=== PATIENT | male | born 1965 | race Caucasian/White ===

== ENCOUNTER 2022-04-08 11:01 | Emergency (ER) | payer OTHER ==
[~2022-04-08] VITALS: Ht 190.5 cm; Wt 106.3 kg
[2022-04-08 11:37] VITALS: BP 113/67
[2022-04-08 11:46] VITALS: BP 123/72
[2022-04-08 11:55] LABS: HEMATOCRIT 37.9 % (39.0-50.0); HEMOGLOBIN 12.1 g/dl (14.0-18.0); MEAN CELL VOLUME 95.5 fL CALC (80.0-100.0); MEAN CORPUSCULAR HGB 30.5 pG CALC (26.0-32.0); MEAN CORPUSCULAR HGB CONC 31.9 g/dL CAL (32.0-36.0); NEUT# 2.91 thou/uL (1.82-7.42); RED BLOOD COUNT 3.97 mill/uL (4.70-6.10); RED CELL DISTRI WIDTH 12.9 % (11.5-15.5)
[2022-04-08 11:59] VITALS: BP 113/71
[2022-04-08 12:30] VITALS: BP 119/70
[2022-04-08 12:30] LABS: ALBUMIN 3.6 g/dL (3.2-5.0); ALKALINE PHOSPHATASE 71 u/l (38-126); ANION GAP 11 (6-22 (CALC)); BILIRUBIN, TOTAL 0.9 mg/dL (0.0-1.4); BUN 13 mg/dL (9-20); BUN/CREATININE RATIO 15 (12-20 (CALC)); CARBON DIOXIDE 24 mmol/l (22-30); CHLORIDE 110 mmol/l (95-108); CREATININE 0.8 mg/dL (0.7-1.3); GFR > 60 ML/MIN (>=60 (CALC)); GFR FOR AFR.AMER. > 60 ML/MIN (>=60 (CALC)); SGOT/AST 28 u/l (17-59); SODIUM 141 mmol/l (137-146); TOTAL PROTEIN 6.9 g/dL (6.3-8.2)
[2022-04-08 12:42] LABS: MYOGLOBIN 81 ng/mL (0 - 121)
[2022-04-08 14:14] VITALS: BP 119/70
== END 2022-04-08 14:15 | disposition short-term general hospital (02) | DRG 72 ==
LOC: ED 11:01
PROVIDERS: Emergency Medicine
DX: G93.9 Disorder of brain, unspecified (principal)

== ENCOUNTER 2022-08-12 07:14 | Day surgery (SDC) | payer OTHER ==
[~2022-08-12] VITALS: Ht 188 cm; Wt 108.0 kg
[~2022-08-12 07:14] MED LIST: ALPHAGAN P0.1 % OU; ASPIRIN325 MG PO; BISACODYL5 M1 PO; CALCIUM500 MG/D PO; CONSTULOSE10 GM/15 M; DEXAMETHASONE4 MG PO; DOCUSATE SOD100 MG PO; DORZOLAMIDE HCL/1 ML OU; LUMIGAN0.01 % OP; MELATONIN10 M1; MINERI1; OMEPRAZOLE DR20 MG; POLYETHYLENE GL1 PO1; SYSTANE BAL OP; TAGRISSO80 MG; TAMSULOSIN HCL0.4 MG PO; TRAMADOL HYDROC50 M1; TRIAMCINOLON0.11 EX; VYZULTA0.024 % OU
[2022-08-12] MEDS ORDERED: TORADOL PO (09:47)
[2022-08-12 11:36] VITALS: BP 11/74
== END 2022-08-12 12:06 | disposition designated cancer center or children's hospital (05) | DRG 351 ==
LOC: ORM 07:14
PROVIDERS: ATTEND Surgery
PROC: 0YU50JZ Supplement Right Inguinal Region with Synthetic Substitute, Open Approach (ICD-10-PCS; principal; 2022-08-12)
PROC: 0WQF0ZZ Repair Abdominal Wall, Open Approach (ICD-10-PCS; 2022-08-12)
DX: K40.90 Unilateral inguinal hernia, without obstruction or gangrene, not specified as recurrent (principal); K42.0 Umbilical hernia with obstruction, without gangrene
CPT/HCPCS: C9290; J0131

== ENCOUNTER 2024-07-27 04:32 | Emergency (ER) | payer OTHER ==
[2024-07-27] VITALS (16 sets, daily range): BP systolic 116–140; BP diastolic 66–73
[~2024-07-27] VITALS: Ht 188 cm; Wt 109.0 kg
[~2024-07-27 04:32] MED LIST changes: +ONDANSETRON HCL8 MG PO; +TORADOL PO; +TYLENOL # 31 TA1 PO
[2024-07-27] MEDS ORDERED: KETOROLAC TROMETHAMINE 30 MG/ML SDV IV ONE (05:05)
[2024-07-27] MEDS ORDERED: OXYMETAZOLINE HCL 15 ML/BTL ONE (05:05)
[2024-07-27] MEDS ORDERED: DiphenhydrAMINE HCL 50 MG/ML SDV IV ONE (05:05)
[2024-07-27 05:19] LABS: ANION GAP 8 (6-22 (CALC)); BILIRUBIN, TOTAL 0.7 mg/dL (0.2-1.3); BUN 8 mg/dL (9-20); BUN/CREATININE RATIO 12 (12-20 (CALC)); CARBON DIOXIDE 25 mmol/l (22-30); CHLORIDE 107 mmol/l (95-108); CREATININE 0.7 mg/dL (0.7-1.3); ESTIMATED GFR 105 ML/MIN (>=90 (CALC)); POTASSIUM 3.8 mmol/l (3.5-5.1); SGOT/AST 48 u/l (17-59); SODIUM 136 mmol/l (137-146); TOTAL PROTEIN 6.5 g/dL (6.3-8.2)
[2024-07-27 05:35] LABS: ALBUMIN 2.8 g/dL (3.2-5.0); ALKALINE PHOSPHATASE 170 u/l (38-126); BASO% 0.1 % (0-3); EOS% 0.9 % (0-8); IMMATURE GRANULOCYTES 0.4 % (0.0-5.0); LYMPH% 14.7 % (15-41); MEAN CELL VOLUME 86.7 fL CALC (80.0-100.0); MEAN CORPUSCULAR HGB 28.5 pG CALC (26.0-32.0); MEAN CORPUSCULAR HGB CONC 32.9 g/dL CAL (32.0-36.0); MONO% 12.4 % (2-13); NEUT# 9.45 thou/uL (1.82-7.42); NEUT% 71.5 % (42-76); RED BLOOD COUNT 2.7 mill/uL (4.70-6.10); RED CELL DISTRI WIDTH 15.6 % (11.5-15.5)
[2024-07-27 05:38] LABS: HEMOGLOBIN 7.7 g/dl (14.0-18.0)
[2024-07-27 05:39] LABS: HEMATOCRIT 23.4 % (39.0-50.0)
[2024-07-27 05:53] LABS: URINE BLOOD DIPSTICK Negative (NEGATIVE); URINE GLUCOSE - DIPSTICK Negative (NEGATIVE); URINE KETONE 15 mg/dL (NEGATIVE); URINE LEUK ESTERASE Negative (NEGATIVE); URINE NITRITE - DIPSTICK Negative (Negative); URINE PH 7.5 (4.5-8.0); URINE PROTEIN - DIPSTICK 30 mg/dL (NEG-TRACE); URINE UROBILINOGEN - DIPSTICK >=8.0 E.U./dL (0.2)
[2024-07-27] MEDS ORDERED: VITAMIN D-32000 UNI1 PO (05:53)
[2024-07-27] MEDS ORDERED: TAGRISSO80 MG PO (05:55)
[2024-07-27] MEDS ORDERED: OMEPRAZOLE DR40 MG PO (05:57)
[2024-07-27] MEDS ORDERED: BENADRYL 550 MG/1 M2 PO (05:58)
[2024-07-27] MEDS ORDERED: LASIX 40 MG TAB40 MG PO (06:01)
[2024-07-27] MEDS ORDERED: LORTAB 7.57.5 MG PO (06:03)
[2024-07-27 06:04] LABS: INTERNATIONAL NORMALIZED RATIO 1.3 RATIO (0.7-1.3)
[2024-07-27] MEDS ORDERED: GABAPENTIN300 M2 PO (06:05)
[2024-07-27] MEDS ORDERED: ACETAMINOPHEN325 MG PO (06:06)
[2024-07-27] MEDS ORDERED: IBUPROFEN600 MG PO (06:06)
[2024-07-27] MEDS ORDERED: CLARITIN10 M1 PO (06:08)
[2024-07-27 06:10] LABS: URINE COLOR Yellow
[2024-07-27 06:12] LABS: URINE BACTERIA FEW hpf; URINE EPITHELIAL CELLS FEW EPI/hpf (0-FEW)
[2024-07-27 06:13] LABS: PROTHROMBIN TIME 12.6 SECONDS (9.0-12.5)
[2024-07-27] MEDS ORDERED: AZITHROMYCIN 500 MG in SODIUM CHLORIDE 0.9% 250 ML IV ONE (06:25)
[2024-07-27] MEDS ORDERED: cefTRIAXone SODIUM 2 GM in SODIUM CHLORIDE 0.9% 100 ML IV ONE (06:25)
[2024-07-27 06:31] LABS: D-DIMER 5.63 mg/L (0.19-0.60)
[2024-07-27] MEDS ORDERED: VANCOMYCIN HCL 1 GM in SODIUM CHLORIDE 0.9% 250 ML IV ONE (08:55)
[2024-07-27] MEDS ORDERED: PIPERACILLIN Sodium-Tazobactam 3.375 GM in SODIUM CHLORIDE 0.9% 100 ML IV ONE (08:55)
== END 2024-07-27 10:15 | disposition short-term general hospital (02) | DRG 178 ==
LOC: ED 04:32
PROVIDERS: Family Medicine
DX: J85.1 Abscess of lung with pneumonia (principal); C34.90 Malignant neoplasm of unspecified part of unspecified bronchus or lung
CPT/HCPCS: Q9967